=== PATIENT | female | born 1980 | race Caucasian/White ===

== ENCOUNTER 2017-07-02 10:32 | Inpatient (IN) | payer OTHER ==
[2017-07-02 11:18] VITALS: BMI 22.3
--- NOTE | 2017-07-02 11:45 | HP ---
COWS - Scale Resting Pulse: 0= [place] 80 or Below Sweatin=Flushed/Facial Moisture Restless Observation: 3= Extraneous Movement Pupil Size: 2= Moderately Dilated Bone or Joint Aches: 2= Severe Diffuse Aches Runny Nose/ Eye Tearin= Runny Nose/Eyes GI Upset > 30mins: 3= Vomiting/Diarrhea Tremor Observation: 2= Slight Tremor Visible Yawning Observation: 2= >3x During Session Anxiety or Irritability: 2=Irritable/Anxious Goose Flesh Skin: 0=Smooth Skin COWS Score: 20 Admission ROS S - HPI Chief Complaint: i am here needed help to stop using heroin,cocaine,marijuana,street methadone, Allergies/Adverse Reactions: Allergies Allergy/AdvReac Type Severity Reaction Status Date / Time No Known Allergies Allergy Verified 07/02/17 11:45 History of Present Illness: this 36 years old female with heroin and cocaine,marijuana,street methadone, polysubstance dependence,seeking detox,withdrawal symptom, never been in detox before seen in [place] last night refer for detox hepatitis c nicotine dependence Exam Limitations: No Limitations - Ebola screening Have you traveled outside of the country in the last 21 days: No (N) Have you had contact with anyone from an Ebola affected area: No Have you been sick,other than usual withdrawal symptoms: No Do you have a fever: No - Review of Systems Constitutional: Chills, Loss of Appetite, Malaise, Night Sweats, Changes in sleep, Weakness, Unintentional Wgt. Loss EENT: reports: Tearing, Nose Congestion Respiratory: reports: No Symptoms reported Cardiac: reports: No Symptoms Reported GI: reports: Nausea, Vomiting, Abdominal cramping : reports: No Symptoms Reported Musculoskeletal: reports: Back Pain, Joint Pain, Muscle Pain, Joint Stiffness Integumentary: reports: Dryness Neuro: reports: Headache, Tremors Endocrine: reports: No Symptoms Reported Hematology: reports: No Symptoms Reported Psychiatric: reports: No Sypmtoms Reported, Judgement Intact, Mood/Affect Appropiate, Orientated x3 Patient History - Patient Medical History Hx Anemia: No Hx Asthma: No Hx Chronic Obstructive Pulmonary Disease (COPD): No Hx Cancer: No Hx Cardiac Disorders: No Hx Congestive Heart Failure: No Hx Hypertension: No Hx Hypercholesterolemia: No Hx Pacemaker: No HX Cerebrovascular Accident: No Hx Seizures: No Hx Dementia: No Hx Diabetes: No Hx Gastrointestinal Disorders: No Hx Liver Disease: No Hx Genitourinary Disorders: No Hx Sexually Transmitted Disorders: No Hx Renal Disease (ESRD): No Hx Thyroid Disease: No Hx Human Immunodeficiency Virus (HIV): No (last 04/06 negfative) Hx Hepatitis C: Yes Hx Depression: No Hx Suicide Attempt: No Hx Bipolar Disorder: No Hx Schizophrenia: No Other Medical History: no suicidal,no homicidal - Patient Surgical History Past Surgical History: No - PPD History Previous Implant?: Yes Documented Results: Negative w/o proof Implanted On Prior [facility] Admission?: No PPD to be Administered?: Yes - Reproductive History Patient is a Female of Child Bearing Age (11 -55 yrs old): Yes Last Menstrual Period: 12/12/16 Patient : No - Smoking Cessation Smoking history: Current every day smoker Have you smoked in the past 12 months: Yes Aproximately how many cigarettes per day: 20 Hx Chewing Tobacco Use: No Initiated information on smoking cessation: Yes 'Breaking Loose' booklet given: 07/02/17 - Substance & Tx. History Hx Alcohol Use: No Hx Substance Use: Yes Substance Use Type: Cocaine, Heroin, Marijuana Hx Substance Use Treatment: No - Substances Abused STREET METHADONE Route: Oral Frequency: 3-6 times per week Amount used: 40MG Age of first use: 22 Date of Last Use: 06/28/17 THC Route: Smoking Frequency: 1-2 times per week Age of first use: 16 Date of Last Use: 06/25/17 Heroin Route: Injection Frequency: Daily Amount used: 15 bags Age of first use: 16 Date of Last Use: 06/30/17 Cocaine Route: Injection Frequency: 3-6 times per week Amount used: $10 Age of first use: 21 Date of Last Use: 06/28/17 Family Disease History - Family Disease History Family History: Denies Admission Physical Exam BHS - Vital Signs Vital Signs: Vital Signs - 24 hr 07/02/17 11:09 Temperature 98.6 F Pulse Rate 56 L Respiratory 14 Rate Blood Pressure 136/75 - Physical General Appearance: Yes: Moderate Distress, Tremorous, Irritable HEENTM: Yes: Normal ENT Inspection, LUZ MARIA, Pharynx Normal Respiratory: Yes: Lungs Clear, Normal Breath Sounds, No Respiratory Distress Neck: Yes: Within Normal Limits, Supple, Trachea in good position Breast: Yes: Breast Exam Deferred Cardiology: Yes: Within Normal Limits, Regular Rhythm, Regular Rate, S1, S2 Abdominal: Yes: Within Normal Limits, Normal Bowel Sounds, Non Tender, Flat, Soft Genitourinary: Yes: Within Normal Limits Back: Yes: Muscle Spasm Musculoskeletal: Yes: full range of Motion, Back pain, Joint Stiffness, Muscle Pain Extremities: Yes: Within Normal Limits, Normal Range of Motion, Tremors Neurological: Yes: Within Normal Limits, 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, Fully Oriented, Alert, Motor Strength 5/5 Integumentary: Yes: Dry, Other (tattoes bosy) Lymphatic: Yes: Within Normal Limits - Diagnostic (1) Opioid dependence with withdrawal Current Visit: Yes Status: Acute (2) Cocaine dependence Current Visit: Yes Status: Acute (3) Cannabis dependence Current Visit: Yes Status: Acute (4) Nicotine dependence Current Visit: Yes Status: Acute (5) Weight loss Current Visit: Yes Status: Acute (6) Insomnia Current Visit: Yes Status: Acute (7) Hepatitis C Current Visit: Yes Status: Acute Cleared for Admission [facility] - Detox or Rehab [facility] Level of Care: Medically Managed Detox Regimen/Protocol: Methadone [facility] Breath Alcohol Content Breath Alcohol Content: 0 Urine Pregancy Test - Result Urine Test Results: Negative- NO Line Present Urine Drug Screen - Results Drug Screen Negative: No Urine Drug Screen Results: THC-Marijuana, PREETI-Cocaine, PCP-Phencyclidine, BZO- Benzodiazepines, MTD-Methadone
[2017-07-02] MEDS ORDERED: MAG HYDROX/AL HYDROX/SIMETH 30 ML UNIT-DOSE CUP PO PRN (12:07)
[2017-07-02] MEDS ORDERED: MAGNESIUM HYDROX 2400MG/30ML ORAL SUSPENSION 30 ML CUP PO PRN (12:07)
[2017-07-02] MEDS ORDERED: METHADONE HCL 10 MG TABLET (FOR DETOX USE ONLY) PO ONE ×2 (12:07→23:00)
[2017-07-02] MEDS ORDERED: NICOTINE POLACRILEX 2 MG GUM BUC PRN (12:07)
[2017-07-02] MEDS ORDERED: MAGNESIUM CITRATE 300 ML BOTTLE PO PRN (12:07)
[2017-07-02] MEDS ORDERED: guaiFENesin/D-METHORPHAN HB 10 ML UNIT-DOSE CUPS PO PRN (12:07)
[2017-07-02] MEDS ORDERED: LOPERAMIDE HCL 2 MG CAPSULE PO PRN (12:07)
[2017-07-02] MEDS ORDERED: P-EPHED 60MG/TRIPROLIDI 2.5MG TABLET PO PRN (12:07)
[2017-07-02] MEDS ORDERED: MENTHOL/PHENOL 1 EACH UD MM PRN (12:07)
[2017-07-02] MEDS ORDERED: IBUPROFEN 400 MG TABLET (FP) PO PRN (12:07)
[2017-07-02] MEDS: NICOTINE 21 MG/24 HOURS TOPICAL PATCH TD SCH (14:00)
[2017-07-02] MEDS: diazePAM 5 MG TABLET PO PRN ×2 (14:00→22:22)
[2017-07-02] MEDS: hydrOXYzine PAMOATE 25 MG CAPSULE (FP) PO PRN (14:00)
[2017-07-02] MEDS ORDERED: MELATONIN 5 MG TABLETS PO PRN (22:00)
[2017-07-02] MEDS: cloNIDine HCL 0.1 MG TABLET PO PRN (22:22)
[2017-07-02] MEDS: THIAMINE HCL 100 MG TABLET (FP) PO SCH (22:23)
--- NOTE | 2017-07-03 07:48 | CONSULT ---
[facility] Psychiatric Consult - Data Date of interview: 07/03/17 Admission source: [facility] Identifying data: Clemente is 36 years old female, single, homeless, unemployed, with no psychiatric howspitalization history, with heroin and cocaine,marijuana ,street methadone, PCP Benzodiazepins abuse/dependence, is seeking for detoxification reporting withdrawal symptoms. Substance Abuse History: Smoking Cessation. Smoking history: Current every day smoker. Have you smoked in the past 12 months: Yes. Aproximately how many cigarettes per day: 20. Hx Chewing Tobacco Use: No. Initiated information on smoking cessation: Yes. - Substance & Tx. History. Hx Alcohol Use: No. Hx Substance Use: Yes. Substance Use Type: Cocaine, Heroin, Marijuana. Hx Substance Use Treatment: No. - Substances Abused. STREET METHADONE. Route : Oral. Frequency: 3-6 times per week. Amount used: 40MG. Age of first use: 22. Date of Last Use: 06/28/17. THC. Route: Smoking. Frequency: 1-2 times per week. Age of first use: 16. Date of Last Use: 06/25/17. Heroin. Route: Injection. Frequency: Daily. Amount used: 15 bags. Age of first use : 16. Date of Last Use: 06/30/17. Urine Drug Screen Results: THC-Marijuana, PREETI-Cocaine, PCP-Phencyclidine, BZO-Benzodiazepines, MTD-Methadone Medical History: Weigth loss history. HepC+, Psychiatric History: Patient denies past psychiatric contact, reports no medications taking prior to admission, denies [place] and homicidal history as well. Physical/Sexual Abuse/Trauma History: Denies Additional Comment: Urine Drug Screen Results: THC-Marijuana, PREETI-Cocaine, PCP- Phencyclidine, BZO-Benzodiazepines, MTD-Methadone. Observation. Detox Unit Care Protocol Mental Status Exam - Mental Status Exam Alert and Oriented to: Person Cognitive Function: Fair Patient Appearance: Unkempt Mood: Sad Affect: Flat Patient Behavior: Sedated Speech Pattern: Delayed Voice Loudness: Mildly Soft/Quiet Thought Process: Circumstantial Thought Disorder: Being Controlled Hallucinations: Denies Suicidal Ideation: Denies Homicidal Ideation: Denies Insight/Judgement: Fair Sleep: Difficulty falling asleep Appetite: Weight loss Muscle strength/Tone: Mild Hypotonicity Gait/Station: Shuffling Additional Comments: Observation. Detox Unit Care Protocol Psychiatric Findings - Problem List ([place] 1, 2,3) (1) Benzodiazepine abuse Current Visit: Yes Status: Acute (2) Drug-induced mood disorder Current Visit: Yes Status: Suspected (3) Cannabis dependence Current Visit: Yes Status: Acute (4) Cocaine dependence Current Visit: Yes Status: Acute (5) Nicotine dependence Current Visit: Yes Status: Acute (6) Opioid dependence with withdrawal Current Visit: Yes Status: Acute (7) PCP (phencyclidine) abuse Current Visit: Yes Status: Acute (8) Weight loss Current Visit: Yes Status: Acute - Initial Treatment Plan Initial Treatment Plan: Observation. Detox Unit Care Protocol
--- NOTE | 2017-07-03 09:56 | PN ---
BHS CIWA - CIWA Score Nausea/Vomitin Muscle Tremors: 3 Anxiety: 3 Agitation: 3 Paroxysmal Sweats: 1-Minimal Palms Moist Orientation: 0-Oriented Tacttile Disturbances: 1-Very Mild Itch/Numbness Auditory Disturbances: 1-Very Mild Visual Disturbances: 0-None Headache: 2-Mild CIWA-Ar Total Score: 17 BHS Progress Note (SOAP) Subjective: ALERT,IRRITABLE,ANXIOUS,INTERRUPTED SLEEP,PAIN IN THE BODY AND BACK,TREMOR,PAIN IN THE BODY AND BACK Objective: 07/03/17 09:54 Vital Signs Temperature 99.3 F 07/03/17 06:21 Pulse Rate 47 L 07/03/17 06:21 Respiratory Rate 16 07/03/17 06:21 Blood Pressure 140/92 07/03/17 06:21 O2 Sat by Pulse Oximetry (%) EKG SINUS BRADYCARDIA WITH SINUS ARRHYTHMIA 50/MIN NO CHEST PAIN,NO SOB,NO DIZZINESS LABS PENDING Assessment: 07/03/17 09:56 WITHDRAWAL SYMPTOM Plan: CONTINUE DETOX
[2017-07-03] MEDS ORDERED: METHADONE HCL 10 MG TABLET (FOR DETOX USE ONLY) PO ONE (10:00)
[2017-07-03 10:01] LABS: HEMATOCRIT 43.4 % (32.4-45.2); HEMOGLOBIN 14.8 GM/dL (10.7-15.3); MCH 30.9 pg (25.7-33.7); MEAN CELL VOLUME 90.8 fl (80-96); MEAN PLT VOLUME 9.1 fl (7.5-11.1); PLATELET COUNT 306 K/MM3 (134-434); RBC 4.78 M/mm3 (3.60-5.2); RDW 14.5 % (11.6-15.6); WHITE BLOOD COUNT 10.9 K/mm3 (4.0-10.0)
[2017-07-03 10:10] LABS: ALBUMIN 3.7 g/dl (3.4-5.0); ANION GAP 8 (8-16); BLOOD UREA NITROGEN 12 mg/dL (7-18); CALCIUM 9.5 mg/dL (8.5-10.1); CHLORIDE 103 mmol/L (98-107); CO2 26 mmol/L (21-32); GLUCOSE,RANDOM 107 mg/dL (74-106); POTASSIUM 4.5 mmol/L (3.5-5.1); SODIUM 137 mmol/L (136-145)
[2017-07-03 10:13] LABS: ALK PHOS 104 U/L (45-117); BILIRUBIN,TOTAL 0.8 mg/dL (0.2-1.0); CREATININE 0.8 mg/dL (0.55-1.02); SGOT/AST 46 U/L (15-37); SGPT/ALT 84 U/L (12-78); TOT PROT 8.2 g/dl (6.4-8.2)
[2017-07-03] MEDS: PRENATAL VITAMINS W/ FOLIC ACID TABLET (FP) PO SCH (10:15)
[2017-07-03] MEDS: NICOTINE 21 MG/24 HOURS TOPICAL PATCH TD SCH (10:16)
[2017-07-03] MEDS: diazePAM 5 MG TABLET PO PRN ×3 (10:18→22:14)
[2017-07-03] MEDS: ACETAMINOPHEN 325 MG TABLET (FP) PO PRN (10:20)
[2017-07-03] MEDS: cloNIDine HCL 0.1 MG TABLET PO PRN (22:14)
[2017-07-03] MEDS: THIAMINE HCL 100 MG TABLET (FP) PO SCH (22:15)
[2017-07-04] MEDS: diazePAM 5 MG TABLET PO PRN ×2 (02:12→08:02)
[2017-07-04] MEDS ORDERED: BACITRACIN 0.9 GM PACKET TP SCH (10:00)
[2017-07-04] MEDS ORDERED: METHADONE HCL 5 MG TABLET (FOR DETOX USE ONLY) PO ONE (10:00)
[2017-07-04 10:03] LABS: URINE APPEARANCE CLEAR; URINE BILIRUBIN NEGATIVE (<2.0 mg/dL); URINE BLOOD NEGATIVE (NEGATIVE); URINE COLOR LTYELLOW; URINE GLUCOSE (UA) NEGATIVE (NEGATIVE); URINE KETONE NEGATIVE (NEGATIVE); URINE LEUK ESTERASE NEGATIVE (NEGATIVE); URINE NITRITE NEGATIVE (NEGATIVE); URINE PROTEIN NEGATIVE (NEGATIVE); URINE UROBILINOGEN NEGATIVE mg/dL (0.2-1.0)
[2017-07-04 10:07] VITALS: BP 148/94; PULSE 57; TEMP 98.2
[2017-07-04] MEDS: PRENATAL VITAMINS W/ FOLIC ACID TABLET (FP) PO SCH (10:40)
[2017-07-04] MEDS: NICOTINE 21 MG/24 HOURS TOPICAL PATCH TD SCH (10:41)
[2017-07-04] MEDS: hydrOXYzine PAMOATE 25 MG CAPSULE (FP) PO PRN (10:42)
[2017-07-04] MEDS: ACETAMINOPHEN 325 MG TABLET (FP) PO PRN (10:43)
--- NOTE | 2017-07-04 10:57 | PN ---
S COWS - Scale Resting Pulse: 0= [place] 80 or Below Sweatin= Chills/Flushing Restless Observation: 3= Extraneous Movement Pupil Size: 1= Pupils >than Normal Bone or Joint Aches: 2= Severe Diffuse Aches Runny Nose/ Eye Tearin= Nasal Congestion GI Upset > 30mins: 2= Nausea/Diarrhea Tremor Observation of Outstretched Hands: 2= Slight Tremor Visible Yawning Observation: 2= >3x During Session Anxiety or Irritability: 2=Irritable/Anxious Goose Flesh Skin: 0=Smooth Skin COWS Score: 16 BHS Progress Note (SOAP) Subjective: ALERT,IRRITABLE,ANXIOUS,INTERRUPTED SLEEP,PAIN IN THE BODY BACK TREMOR Objective: 07/04/17 10:55 Vital Signs Temperature 98.2 F 07/04/17 10:07 Pulse Rate 57 L 07/04/17 10:07 Respiratory Rate 18 07/04/17 10:07 Blood Pressure 148/94 07/04/17 10:07 O2 Sat by Pulse Oximetry (%) Laboratory Last Values WBC 10.9 K/mm3 (4.0-10.0) H 07/03/17 07:30 RBC 4.78 M/mm3 (3.60-5.2) 07/03/17 07:30 Hgb 14.8 GM/dL (10.7-15.3) 07/03/17 07:30 Hct 43.4 % (32.4-45.2) 07/03/17 07:30 MCV 90.8 fl (80-96) 07/03/17 07:30 MCH 30.9 pg (25.7-33.7) 07/03/17 07:30 MCHC 34.0 g/dl (32.0-36.0) 07/03/17 07:30 RDW 14.5 % (11.6-15.6) 07/03/17 07:30 Plt Count 306 K/MM3 (134-434) 07/03/17 07:30 MPV 9.1 fl (7.5-11.1) 07/03/17 07:30 Sodium 137 mmol/L (136-145) 07/03/17 07:30 Potassium 4.5 mmol/L (3.5-5.1) 07/03/17 07:30 Chloride 103 mmol/L (98-107) 07/03/17 07:30 Carbon Dioxide 26 mmol/L (21-32) 07/03/17 07:30 Anion Gap 8 (8-16) 07/03/17 07:30 BUN 12 mg/dL (7-18) 07/03/17 07:30 Creatinine 0.8 mg/dL (0.55-1.02) 07/03/17 07:30 Creat Clearance w eGFR > 60 (>60) 07/03/17 07:30 Random Glucose 107 mg/dL (74-106) H 07/03/17 07:30 Calcium 9.5 mg/dL (8.5-10.1) 07/03/17 07:30 Total Bilirubin 0.8 mg/dL (0.2-1.0) 07/03/17 07:30 AST 46 U/L (15-37) H 07/03/17 07:30 ALT 84 U/L (12-78) H 07/03/17 07:30 Alkaline Phosphatase 104 U/L (45-117) 07/03/17 07:30 Total Protein 8.2 g/dl (6.4-8.2) 07/03/17 07:30 Albumin 3.7 g/dl (3.4-5.0) 07/03/17 07:30 Urine Color Ltyellow 07/04/17 08:00 Urine Appearance Clear 07/04/17 08:00 Urine pH 6.0 (5.0-8.0) 07/04/17 08:00 Ur Specific [place] 1.010 (1.001-1.035) 07/04/17 08:00 Urine Protein Negative (NEGATIVE) 07/04/17 08:00 Urine Glucose (UA) Negative (NEGATIVE) 07/04/17 08:00 Urine Ketones Negative (NEGATIVE) 07/04/17 08:00 Urine Blood Negative (NEGATIVE) 07/04/17 08:00 Urine Nitrite Negative (NEGATIVE) 07/04/17 08:00 Urine Bilirubin Negative (<2.0 mg/dL) 07/04/17 08:00 Urine Urobilinogen Negative mg/dL (0.2-1.0) 07/04/17 08:00 Ur Leukocyte Esterase Negative (NEGATIVE) 07/04/17 08:00 RPR Titer Nonreactive (NONREACTIVE) 07/03/17 07:30 Assessment: 07/04/17 10:56 WITHDRAWAL SYMPTOM Plan: CONTINUE DETOX
--- NOTE | 2017-07-04 11:39 | PN ---
BEN Progress Note Note: PATIENT DID NOT WANT TO COMPLETE TREATMENT DUE TO EMERGENCY MEDICAL PROBLEM WITH THE MOTHER, SEEN BY COUNSELOR,SIGNED RELEASE AMSaar,
--- NOTE | 2017-07-04 11:44 | DS ---
[facility] Detox Discharge Summary Admission Date: 07/02/17 Discharge Date: 07/04/17 - History Present History: Cannabis Dependence, Cocaine Dependence, Opioid Dependence Additional Comments: PATIENT DID NOT WANT TO COMPLETE TREATMENT DUE TO EMERGENCY MEDICAL PROBLEM OF THE MOTHER IN [place], SEEN BY COUNSELOR,SIGNED RELEASE AMA Pertinent Past History: HEPATITIS C NICOTINE DEPENDENCE WEIGHT LOSS INSOMNIA - Physical Exam Results Vital Signs: Vital Signs Temperature 98.2 F 07/04/17 10:07 Pulse Rate 57 L 07/04/17 10:07 Respiratory Rate 18 07/04/17 10:07 Blood Pressure 148/94 07/04/17 10:07 O2 Sat by Pulse Oximetry (%) Pertinent Admission Physical Exam Findings: WITHDRAWAL SIGNS AND SYMPTOM Laboratory Last Values WBC 10.9 K/mm3 (4.0-10.0) H 07/03/17 07:30 RBC 4.78 M/mm3 (3.60-5.2) 07/03/17 07:30 Hgb 14.8 GM/dL (10.7-15.3) 07/03/17 07:30 Hct 43.4 % (32.4-45.2) 07/03/17 07:30 MCV 90.8 fl (80-96) 07/03/17 07:30 MCH 30.9 pg (25.7-33.7) 07/03/17 07:30 MCHC 34.0 g/dl (32.0-36.0) 07/03/17 07:30 RDW 14.5 % (11.6-15.6) 07/03/17 07:30 Plt Count 306 K/MM3 (134-434) 07/03/17 07:30 MPV 9.1 fl (7.5-11.1) 07/03/17 07:30 Sodium 137 mmol/L (136-145) 07/03/17 07:30 Potassium 4.5 mmol/L (3.5-5.1) 07/03/17 07:30 Chloride 103 mmol/L (98-107) 07/03/17 07:30 Carbon Dioxide 26 mmol/L (21-32) 07/03/17 07:30 Anion Gap 8 (8-16) 07/03/17 07:30 BUN 12 mg/dL (7-18) 07/03/17 07:30 Creatinine 0.8 mg/dL (0.55-1.02) 07/03/17 07:30 Creat Clearance w eGFR > 60 (>60) 07/03/17 07:30 Random Glucose 107 mg/dL (74-106) H 07/03/17 07:30 Calcium 9.5 mg/dL (8.5-10.1) 07/03/17 07:30 Total Bilirubin 0.8 mg/dL (0.2-1.0) 07/03/17 07:30 AST 46 U/L (15-37) H 07/03/17 07:30 ALT 84 U/L (12-78) H 07/03/17 07:30 Alkaline Phosphatase 104 U/L (45-117) 07/03/17 07:30 Total Protein 8.2 g/dl (6.4-8.2) 07/03/17 07:30 Albumin 3.7 g/dl (3.4-5.0) 07/03/17 07:30 Urine Color Ltyellow 07/04/17 08:00 Urine Appearance Clear 07/04/17 08:00 Urine pH 6.0 (5.0-8.0) 07/04/17 08:00 Ur Specific [place] 1.010 (1.001-1.035) 07/04/17 08:00 Urine Protein Negative (NEGATIVE) 07/04/17 08:00 Urine Glucose (UA) Negative (NEGATIVE) 07/04/17 08:00 Urine Ketones Negative (NEGATIVE) 07/04/17 08:00 Urine Blood Negative (NEGATIVE) 07/04/17 08:00 Urine Nitrite Negative (NEGATIVE) 07/04/17 08:00 Urine Bilirubin Negative (<2.0 mg/dL) 07/04/17 08:00 Urine Urobilinogen Negative mg/dL (0.2-1.0) 07/04/17 08:00 Ur Leukocyte Esterase Negative (NEGATIVE) 07/04/17 08:00 RPR Titer Nonreactive (NONREACTIVE) 07/03/17 07:30 - Medication Discharge Medications: Ambulatory Orders NK [No Known Home Medication] 07/02/17 - Diagnosis (1) Opioid dependence with withdrawal Current Visit: Yes Status: Acute (2) Cocaine dependence Current Visit: Yes Status: Acute (3) Cannabis dependence Current Visit: Yes Status: Acute (4) Nicotine dependence Current Visit: Yes Status: Acute (5) Weight loss Current Visit: Yes Status: Acute (6) Insomnia Current Visit: Yes Status: Acute (7) Hepatitis C Current Visit: Yes Status: Acute - AMA Did Patient Leave Against Medical Advice: Yes
--- NOTE | 2017-07-05 09:27 | EKG ---
Test Reason : Blood Pressure : / mmHG Vent. Rate : 050 BPM Atrial Rate : 050 BPM P-R Int : 140 ms QRS Dur : 084 ms QT Int : 426 ms P-R-T Axes : 064 050 035 degrees QTc Int : 388 ms SINUS BRADYCARDIA WITH SINUS ARRHYTHMIA MINIMAL VOLTAGE CRITERIA FOR LVH, MAY BE NORMAL VARIANT BORDERLINE ECG NO PREVIOUS ECGS AVAILABLE Confirmed by TAYLOR GOTTI MD ([id number]) on 07/05/2017 9:27:29 AM Referred By: Confirmed By:TAYLOR GOTTI MD
[2017-07-05] MEDS ORDERED: METHADONE HCL 5 MG TABLET (FOR DETOX USE ONLY) PO ONE (10:00)
[2017-07-06] MEDS ORDERED: METHADONE HCL 10 MG TABLET (FOR DETOX USE ONLY) PO ONE (10:00)
[2017-07-07] MEDS ORDERED: METHADONE HCL 5 MG TABLET (FOR DETOX USE ONLY) PO ONE (06:00)
== END 2017-07-04 12:10 | disposition left against medical advice (07) | DRG 770 ==
LOC: YASAS 10:32 → Y6N 12:35
PROVIDERS: ADMIT Internal Medicine; ATTEND Internal Medicine
PROC: HZ2ZZZZ Detoxification Services for Substance Abuse Treatment (ICD-10-PCS; principal; 2017-07-02)
DX: F11.23 Opioid dependence with withdrawal (principal); F14.20 Cocaine dependence, uncomplicated; F12.20 Cannabis dependence, uncomplicated; F16.10 Hallucinogen abuse, uncomplicated; F17.210 Nicotine dependence, cigarettes, uncomplicated; F19.24 Other psychoactive substance dependence with psychoactive substance-induced mood disorder; G47.00 Insomnia, unspecified; B18.2 Chronic viral hepatitis C; R63.4 Abnormal weight loss; Z68.22 Body mass index [BMI] 22.0-22.9, adult
CPT/HCPCS: 36415; 80053; 81003; 85027; 86593; 93005; 93010; J0735

== ENCOUNTER 2018-10-26 13:08 | Inpatient (IN) | payer OTHER ==
[2018-10-26 15:33] VITALS: BMI 23.2
--- NOTE | 2018-10-26 15:47 | HP ---
CIWA Score - Admission Criteria [facility] Guidelines: Admission for Medically Managed Detox: Requires at least one of the followin. CIWA greater than 12 2. Seizures within the past 24 hours 3. Delirium tremens within the past 24 hours 4. Hallucinations within the past 24 hours 5. Acute intervention needed for co occurring medical disorder 6. Acute intervention needed for co occurring psychiatric disorder 7. Severe withdrawal that cannot be handled at a lower level of care (continued vomiting, continued diarrhea, abnormal vital signs) requiring intravenous medication and/or fluids 8. Admission ROS S - HPI Chief Complaint: I am here to get off the cocaine. I belong to a mmtp program and need to get clean and stay sober. Allergies/Adverse Reactions: Allergies Allergy/AdvReac Type Severity Reaction Status Date / Time No Known Allergies Allergy Verified 10/26/18 15:24 History of Present Illness: pt is a 38yrold female with a history of cocaine, heroin, cannabis and here for rehab. pt belongs to a methadone program on 210mg received today, pending verification. Exam Limitations: No Limitations - Ebola screening Have you traveled outside of the country in the last 21 days: No Have you had contact with anyone from an Ebola affected area: No Have you been sick,other than usual withdrawal symptoms: No Do you have a fever: No - Review of Systems Constitutional: Changes in sleep EENT: reports: Nose Congestion, Other (redness to back of throat) Respiratory: reports: Cough Cardiac: reports: No Symptoms Reported GI: reports: No Symptoms Reported : reports: No Symptoms Reported Musculoskeletal: reports: No Symptoms Reported Integumentary: reports: Flushing, Lesions (to facial area.) Neuro: reports: Tingling, Tremors Endocrine: reports: Excessive Sweating, Flushing Hematology: reports: No Symptoms Reported Psychiatric: reports: Judgement Intact, Mood/Affect Appropiate, Orientated x3, Agitated, Anxious Other Systems: Reviewed and Negative Patient History - Patient Medical History Hx Anemia: No Hx Asthma: No Hx Chronic Obstructive Pulmonary Disease (COPD): No Hx Cancer: No Hx Cardiac Disorders: No Hx Congestive Heart Failure: No Hx Hypertension: No Hx Hypercholesterolemia: No Hx Pacemaker: No HX Cerebrovascular Accident: No Hx Seizures: No Hx Dementia: No Hx Diabetes: No Hx Gastrointestinal Disorders: No Hx Liver Disease: No Hx Genitourinary Disorders: No Hx Sexually Transmitted Disorders: No Hx Renal Disease (ESRD): No Hx Thyroid Disease: No Hx Human Immunodeficiency Virus (HIV): No (last 04/06 negfative) Hx Hepatitis C: Yes Hx Depression: No Hx Suicide Attempt: No Hx Bipolar Disorder: No Hx Schizophrenia: No - Patient Surgical History Past Surgical History: No Hx Neurologic Surgery: No Hx Cataract Extraction: No Hx Cardiac Surgery: No Hx Lung Surgery: No Hx Breast Surgery: No Hx Breast Biopsy: No Hx Abdominal Surgery: No Hx Appendectomy: No Hx Cholecystectomy: No Hx Genitourinary Surgery: No Hx Section: No Hx Orthopedic Surgery: Yes (2006 L5 disc ectomy.) Anesthesia Reaction: No - PPD History Previous Implant?: Yes Date: 07/04/17 PPD to be Administered?: No - Reproductive History Patient is a Female of Child Bearing Age (11 -55 yrs old): Yes Last Menstrual Period: 12/12/16 Patient : No - Smoking Cessation Smoking history: Current every day smoker Have you smoked in the past 12 months: Yes Aproximately how many cigarettes per day: 20 Hx Chewing Tobacco Use: No Initiated information on smoking cessation: Yes 'Breaking Loose' booklet given: 10/26/18 - Substance & Tx. History Hx Alcohol Use: No Hx Substance Use: Yes Substance Use Type: Cocaine, Heroin Hx Substance Use Treatment: Yes (last detox 06/2017 [facility]) - Substances abused Cocaine Substance route: Injection Frequency: Daily Amount used: 1 gram Age of first use: 20 Date of last use: 10/25/18 Heroin Substance route: Injection Frequency: 1-3 times last 30 days Amount used: 4 bags Age of first use: 17 Date of last use: 10/25/18 Family Disease History - Family Disease History Family Disease History: Diabetes: Mother Admission Physical Exam S - Vital Signs Vital Signs: Vital Signs - 24 hr 10/26/18 15:24 Temperature 97.3 F L Pulse Rate 48 L Respiratory 16 Rate - Physical General Appearance: Yes: Appropriately Dressed, Moderate Distress, Thin HEENTM: Yes: Hearing grossly Normal, Normal Voice, Nasal Congestion, Rhinorrhea Respiratory: Yes: Lungs Clear, Normal Breath Sounds, No Respiratory Distress Neck: Yes: No masses,lesions,Nodules Breast: Yes: Within Normal Limits, No Discharge Cardiology: Yes: Regular Rhythm, Regular Rate, S1, S2 Abdominal: Yes: Normal Bowel Sounds Genitourinary: Yes: Within Normal Limits Back: Yes: Normal Inspection Musculoskeletal: Yes: full range of Motion, Back pain Extremities: Yes: Normal Capillary Refill, Normal Inspection, Non-Tender, Tremors Neurological: Yes: Fully Oriented, Normal Response Integumentary: Yes: Normal Color, Diaphoresis, Track Barry Lymphatic: Yes: Within Normal Limits - Diagnostic (1) Cannabis dependence Current Visit: Yes Status: Chronic (2) Cocaine dependence Current Visit: Yes Status: Chronic Qualifiers: Substance use status: uncomplicated Qualified Code(s): F14.20 - Cocaine dependence, uncomplicated (3) Hepatitis C Current Visit: Yes Status: Chronic Qualifiers: Viral hepatitis chronicity: chronic Hepatic coma status: without hepatic coma Qualified Code(s): B18.2 - Chronic viral hepatitis C (4) Insomnia Current Visit: No Status: Acute (5) Nicotine dependence Current Visit: Yes Status: Chronic Qualifiers: Nicotine product type: cigarettes Substance use status: uncomplicated Qualified Code(s): F17.210 - Nicotine dependence, cigarettes, uncomplicated (6) Weight loss Current Visit: Yes Status: Acute (7) Drug-induced mood disorder Current Visit: No Status: Suspected (8) Methadone maintenance therapy patient Current Visit: Yes Status: Chronic Cleared for Admission S - Detox or Rehab [facility] Level of Care: Medically Managed Claeared for Rehab Admission: Yes Inpatient Rehab Admission - Rehab Decision to Admit Inpatient rehab admission?: Yes - Initial Determination Are CD services needed?: Yes Free of communicable disease: Yes Not in need of hospitalization: Yes - Rehab Admission Criteria Previous failed treatment: Yes Poor recovery environment: Yes Comorbidities: Yes Lacks judgement: Yes Patient is meeting Inpatient Rehab admission criteria:: Yes
[2018-10-26] MEDS ORDERED: MAGNESIUM CITRATE 300 ML BOTTLE PO PRN (15:56)
[2018-10-26] MEDS ORDERED: MAGNESIUM HYDROX 2400MG/30ML ORAL SUSPENSION 30 ML CUP PO PRN (15:56)
[2018-10-26] MEDS ORDERED: MAG HYDROX/AL HYDROX/SIMETH 30 ML UNIT-DOSE CUP PO PRN (15:56)
[2018-10-26] MEDS ORDERED: IBUPROFEN 400 MG TABLET (FP) PO PRN (15:56)
[2018-10-26] MEDS ORDERED: MENTHOL/PHENOL 1 EACH UD MM PRN (15:56)
[2018-10-26] MEDS ORDERED: LOPERAMIDE HCL 2 MG CAPSULE PO PRN (15:56)
[2018-10-26] MEDS ORDERED: NICOTINE POLACRILEX 4 MG GUM BC PRN (15:56)
[2018-10-26] MEDS: CLINDAMYCIN PHOSPHATE 1% TOPICAL GEL 30 GM TUBE TP SCH (22:09)
[2018-10-26] MEDS: THIAMINE HCL 100 MG TABLET (FP) PO SCH (22:09)
[2018-10-27] MEDS ORDERED: METHADONE HCL 10 MG TABLET PO SCH (07:00)
[2018-10-27] MEDS ORDERED: METHADONE HCL 40 MG DISPERSABLE TABLET ONE (07:12)
[2018-10-27] MEDS ORDERED: METHADONE HCL 10 MG TABLET ONE (07:12)
[2018-10-27] MEDS: METHADONE 200 MG, METHADONE 10 MG PO SCH (07:14)
[2018-10-27] MEDS: ACETAMINOPHEN 325 MG TABLET (FP) PO PRN ×3 (07:16→20:13)
[2018-10-27] MEDS: PRENATAL VITAMINS W/ FOLIC ACID TABLET (FP) PO SCH (09:09)
[2018-10-27] MEDS: CLINDAMYCIN PHOSPHATE 1% TOPICAL GEL 30 GM TUBE TP SCH ×2 (09:10→21:17)
[2018-10-27] MEDS: NICOTINE 21 MG/24 HOURS TOPICAL PATCH TD SCH (09:10)
[2018-10-27 12:55] LABS: ALBUMIN 3.8 g/dl (3.4-5.0); BILIRUBIN,TOTAL 0.6 mg/dL (0.2-1); BLOOD UREA NITROGEN 8.6 mg/dL (7-18); CALCIUM 9.5 mg/dL (8.5-10.1); CREATININE 0.9 mg/dL (0.55-1.3); HEMATOCRIT 38.8 % (32.4-45.2); HEMOGLOBIN 13.3 GM/dL (10.7-15.3); MCH 31.9 pg (25.7-33.7); MCHC 34.4 g/dl (32.0-36.0); PLATELET COUNT 226 K/MM3 (134-434); POTASSIUM 4.2 mmol/L (3.5-5.1); RBC 4.17 M/mm3 (3.60-5.2); RDW 13.2 % (11.6-15.6); TOT PROT 8.1 g/dl (6.4-8.2); WHITE BLOOD COUNT 10.5 K/mm3 (4.0-10.0)
--- NOTE | 2018-10-27 15:22 | EKG ---
Test Reason : Blood Pressure : / mmHG Vent. Rate : 044 BPM Atrial Rate : 044 BPM P-R Int : 160 ms QRS Dur : 086 ms QT Int : 530 ms P-R-T Axes : 048 037 023 degrees QTc Int : 453 ms MARKED SINUS BRADYCARDIA POSSIBLE LEFT ATRIAL ENLARGEMENT NONSPECIFIC T WAVE ABNORMALITY ABNORMAL ECG WHEN COMPARED WITH ECG OF 02-JUL-2017 13:17, T WAVE INVERSION NOW EVIDENT IN ANTERIOR LEADS QT HAS LENGTHENED Confirmed by MD Curly, Khari ([id number]) on 10/27/2018 3:21:45 PM Referred By: EYAD POSADAS Confirmed By:Khari Rawls MD
[2018-10-27 17:30] LABS: PH,URINE 6.5 (5.0-8.0); URINE APPEARANCE CLEAR; URINE BILIRUBIN NEGATIVE (NEGATIVE); URINE COLOR YELLOW; URINE GLUCOSE (UA) NEGATIVE (NEGATIVE); URINE KETONE NEGATIVE (NEGATIVE); URINE LEUK ESTERASE NEGATIVE (NEGATIVE); URINE NITRITE NEGATIVE (NEGATIVE); URINE PROTEIN NEGATIVE (NEGATIVE); URINE UROBILINOGEN 0.2 mg/dL (0.2-1.0)
[2018-10-27] MEDS ORDERED: PT OWN MED DRAWER 7, Y5N ONE (19:34)
[2018-10-27] MEDS: hydrOXYzine PAMOATE 50 MG CAPSULE (FP) PO PRN (21:18)
[2018-10-27] MEDS: MELATONIN 5 MG TABLETS PO PRN (21:18)
[2018-10-27] MEDS: THIAMINE HCL 100 MG TABLET (FP) PO SCH (21:18)
[2018-10-28] MEDS ORDERED: METHADONE HCL 10 MG TABLET ONE (06:29)
[2018-10-28] MEDS ORDERED: METHADONE HCL 40 MG DISPERSABLE TABLET ONE (06:29)
[2018-10-28] MEDS: METHADONE 200 MG, METHADONE 10 MG PO SCH (06:32)
[2018-10-28] MEDS ORDERED: PT OWN MED DRAWER 7, Y5N ONE (08:31)
[2018-10-28] MEDS: NICOTINE 21 MG/24 HOURS TOPICAL PATCH TD SCH (09:42)
[2018-10-28] MEDS: ACETAMINOPHEN 325 MG TABLET (FP) PO PRN ×2 (09:42→17:19)
[2018-10-28] MEDS: PRENATAL VITAMINS W/ FOLIC ACID TABLET (FP) PO SCH (09:42)
[2018-10-28] MEDS: CLINDAMYCIN PHOSPHATE 1% TOPICAL GEL 30 GM TUBE TP SCH ×2 (09:42→21:20)
[2018-10-28] MEDS: P-EPHED 60MG/TRIPROLIDI 2.5MG TABLET PO PRN (20:33)
[2018-10-28] MEDS: hydrOXYzine PAMOATE 50 MG CAPSULE (FP) PO PRN (20:34)
[2018-10-28] MEDS: THIAMINE HCL 100 MG TABLET (FP) PO SCH (21:19)
[2018-10-28] MEDS: MELATONIN 5 MG TABLETS PO PRN (21:20)
[2018-10-29] MEDS ORDERED: METHADONE HCL 10 MG TABLET ONE (06:12)
[2018-10-29] MEDS ORDERED: METHADONE HCL 40 MG DISPERSABLE TABLET ONE (06:13)
[2018-10-29] MEDS: METHADONE 200 MG, METHADONE 10 MG PO SCH (06:16)
[2018-10-29] MEDS: P-EPHED 60MG/TRIPROLIDI 2.5MG TABLET PO PRN ×2 (08:45→17:05)
[2018-10-29] MEDS: NICOTINE 21 MG/24 HOURS TOPICAL PATCH TD SCH (10:04)
[2018-10-29] MEDS: CLINDAMYCIN PHOSPHATE 1% TOPICAL GEL 30 GM TUBE TP SCH ×2 (10:04→21:35)
[2018-10-29] MEDS: PRENATAL VITAMINS W/ FOLIC ACID TABLET (FP) PO SCH (10:04)
[2018-10-29] MEDS: hydrOXYzine PAMOATE 50 MG CAPSULE (FP) PO PRN ×2 (12:44→21:34)
[2018-10-29] MEDS: MELATONIN 5 MG TABLETS PO PRN (21:34)
[2018-10-29] MEDS: THIAMINE HCL 100 MG TABLET (FP) PO SCH (21:34)
[2018-10-29] MEDS ORDERED: PT OWN MED DRAWER 7, Y5N ONE (21:35)
[2018-10-30] MEDS ORDERED: METHADONE HCL 10 MG TABLET ONE (07:40)
[2018-10-30] MEDS ORDERED: METHADONE HCL 40 MG DISPERSABLE TABLET ONE (07:41)
[2018-10-30] MEDS: METHADONE 200 MG, METHADONE 10 MG PO SCH (07:42)
[2018-10-30] MEDS: P-EPHED 60MG/TRIPROLIDI 2.5MG TABLET PO PRN ×2 (09:00→17:13)
[2018-10-30] MEDS: NICOTINE 21 MG/24 HOURS TOPICAL PATCH TD SCH (09:00)
[2018-10-30] MEDS: PRENATAL VITAMINS W/ FOLIC ACID TABLET (FP) PO SCH (09:00)
[2018-10-30] MEDS: CLINDAMYCIN PHOSPHATE 1% TOPICAL GEL 30 GM TUBE TP SCH ×2 (09:00→21:38)
[2018-10-30] MEDS: hydrOXYzine PAMOATE 50 MG CAPSULE (FP) PO PRN ×2 (12:13→21:37)
[2018-10-30] MEDS: THIAMINE HCL 100 MG TABLET (FP) PO SCH (21:37)
[2018-10-30] MEDS: MELATONIN 5 MG TABLETS PO PRN (21:37)
[2018-10-31] MEDS ORDERED: METHADONE HCL 10 MG TABLET ONE (05:08)
[2018-10-31] MEDS ORDERED: METHADONE HCL 40 MG DISPERSABLE TABLET ONE (05:09)
[2018-10-31] MEDS: METHADONE 200 MG, METHADONE 10 MG PO SCH (06:59)
[2018-10-31] MEDS: P-EPHED 60MG/TRIPROLIDI 2.5MG TABLET PO PRN ×2 (07:04→18:12)
[2018-10-31] MEDS ORDERED: PT OWN MED DRAWER 7, Y5N ONE (09:00)
[2018-10-31] MEDS ORDERED: ALBUTEROL SO4 8 GM HFA INHALER IH PRN (09:57)
--- NOTE | 2018-10-31 10:03 | PN ---
[facility] Progress Note Note: pt reports she has a long standing hx of Asthma but has never indicated on admission H/P on two occasions she has been here. States she has her albuterol inhaler in [place]. Pt c/o cold symptoms she had before admission with coughing along with green sputum and nasal congestion. Also reports some redness and pain to inner area of right foot due to her ill- fitting shoes. Vital Signs - 24 hr 10/31/18 10/31/18 10/31/18 00:30 03:30 07:27 Temperature 97.1 F L Pulse Rate 59 L Respiratory 18 16 18 Rate Blood Pressure 132/90 Laboratory Tests 10/26/18 10/27/18 10/27/18 15:51 10:00 10:00 WBC 10.5 H RBC 4.17 Hgb 13.3 Hct 38.8 MCV 93.0 MCH 31.9 MCHC 34.4 RDW 13.2 Plt Count 226 D MPV 9.0 Sodium 138 Potassium 4.2 Chloride 101 Carbon Dioxide 30 Anion Gap 7 L BUN 8.6 Creatinine 0.9 Est GFR (CKD-EPI)AfAm 95.34 Est GFR (CKD-EPI)NonAf 82.26 Random Glucose 94 Calcium 9.5 Total Bilirubin 0.6 AST 78 H ALT 134 H Alkaline Phosphatase 134 H Total Protein 8.1 Albumin 3.8 Urine Color Urine Appearance Urine pH Ur Specific [place] Urine Protein Urine Glucose (UA) Urine Ketones Urine Blood Urine Nitrite Urine Bilirubin Urine Urobilinogen Ur Leukocyte Esterase POC Urine HCG, Qual Negative RPR Titer 10/27/18 10/27/18 10:00 Unknown WBC RBC Hgb Hct MCV MCH MCHC RDW Plt Count MPV Sodium Potassium Chloride Carbon Dioxide Anion Gap BUN Creatinine Est GFR (CKD-EPI)AfAm Est GFR (CKD-EPI)NonAf Random Glucose Calcium Total Bilirubin AST ALT Alkaline Phosphatase Total Protein Albumin Urine Color Yellow Urine Appearance Clear Urine pH 6.5 Ur Specific [place] 1.005 L Urine Protein Negative Urine Glucose (UA) Negative Urine Ketones Negative Urine Blood Negative Urine Nitrite Negative Urine Bilirubin Negative Urine Urobilinogen 0.2 Ur Leukocyte Esterase Negative POC Urine HCG, Qual RPR Titer Nonreactive Alert o x 3 oob ambulates with steady gait Heart:s1 s2, rrr Lungs:cta,pedro., no wheeze or rhonchi Abdomen:soft,flat,+bs,nt Ext:No e/c/c; small redness to inner lateral right foot. A/P: Acute Bronchitis Abrasion, right foot Hx asthma Amoxicillin 500 mg po tid x 7 days Bacitracin oinment to affected foot as directed Albuterol inhaler Q4H prn for sob/wheezing Nebulizer tx prn as directed
[2018-10-31] MEDS: hydrOXYzine PAMOATE 50 MG CAPSULE (FP) PO PRN ×3 (10:05→21:32)
[2018-10-31] MEDS: NICOTINE 21 MG/24 HOURS TOPICAL PATCH TD SCH (10:05)
[2018-10-31] MEDS: PRENATAL VITAMINS W/ FOLIC ACID TABLET (FP) PO SCH (10:05)
[2018-10-31] MEDS: CLINDAMYCIN PHOSPHATE 1% TOPICAL GEL 30 GM TUBE TP SCH ×2 (10:06→21:33)
[2018-10-31] MEDS: ACETAMINOPHEN 325 MG TABLET (FP) PO PRN (10:07)
[2018-10-31] MEDS ORDERED: AMOXICILLIN 500 MG CAPSULE (FP) PO ONE (17:00)
[2018-10-31] MEDS: THIAMINE HCL 100 MG TABLET (FP) PO SCH (21:32)
[2018-10-31] MEDS: guaiFENesin 200 MG/10 ML 10 ML UNIT-DOSE CUPS PO PRN (21:32)
[2018-10-31] MEDS: MELATONIN 5 MG TABLETS PO PRN (21:33)
[2018-10-31] MEDS: AMOXICILLIN 500 MG CAPSULE (FP) PO SCH (21:34)
[2018-11-01] MEDS ORDERED: ALBUTEROL SO4 0.083% IH SOL 2.5 MG/3 ML VIAL.NEB. NEB PRN (00:12)
[2018-11-01] MEDS ORDERED: METHADONE HCL 40 MG DISPERSABLE TABLET ONE (05:54)
[2018-11-01] MEDS ORDERED: METHADONE HCL 10 MG TABLET ONE (05:54)
[2018-11-01] MEDS: AMOXICILLIN 500 MG CAPSULE (FP) PO SCH ×3 (07:00→21:24)
[2018-11-01] MEDS: METHADONE 200 MG, METHADONE 10 MG PO SCH (07:00)
[2018-11-01] MEDS: CLINDAMYCIN PHOSPHATE 1% TOPICAL GEL 30 GM TUBE TP SCH ×2 (09:37→21:25)
[2018-11-01] MEDS: BACITRACIN 0.9 GM PACKET TP SCH (09:37)
[2018-11-01] MEDS: NICOTINE 21 MG/24 HOURS TOPICAL PATCH TD SCH (09:38)
[2018-11-01] MEDS: PRENATAL VITAMINS W/ FOLIC ACID TABLET (FP) PO SCH (09:38)
[2018-11-01] MEDS: guaiFENesin 200 MG/10 ML 10 ML UNIT-DOSE CUPS PO PRN (11:29)
[2018-11-01] MEDS: hydrOXYzine PAMOATE 50 MG CAPSULE (FP) PO PRN ×2 (13:21→21:24)
[2018-11-01] MEDS ORDERED: PT OWN MED DRAWER 7, Y5N ONE (14:55)
[2018-11-01] MEDS: P-EPHED 60MG/TRIPROLIDI 2.5MG TABLET PO PRN (14:56)
[2018-11-01] MEDS: MELATONIN 5 MG TABLETS PO PRN (21:24)
[2018-11-01] MEDS: THIAMINE HCL 100 MG TABLET (FP) PO SCH (21:24)
[2018-11-02] MEDS ORDERED: METHADONE HCL 10 MG TABLET ONE (05:57)
[2018-11-02] MEDS ORDERED: METHADONE HCL 40 MG DISPERSABLE TABLET ONE (05:58)
[2018-11-02] MEDS ORDERED: METHADONE HCL 40 MG DISPERSABLE TABLET PO SCH (06:00)
[2018-11-02] MEDS: METHADONE 200 MG, METHADONE 10 MG PO SCH (06:33)
[2018-11-02] MEDS: AMOXICILLIN 500 MG CAPSULE (FP) PO SCH ×3 (06:33→21:39)
[2018-11-02] MEDS: hydrOXYzine PAMOATE 50 MG CAPSULE (FP) PO PRN ×2 (06:34→21:39)
[2018-11-02] MEDS: BACITRACIN 0.9 GM PACKET TP SCH (09:28)
[2018-11-02] MEDS: CLINDAMYCIN PHOSPHATE 1% TOPICAL GEL 30 GM TUBE TP SCH ×2 (09:29→21:39)
[2018-11-02] MEDS: NICOTINE 21 MG/24 HOURS TOPICAL PATCH TD SCH (09:29)
[2018-11-02] MEDS: PRENATAL VITAMINS W/ FOLIC ACID TABLET (FP) PO SCH (09:30)
[2018-11-02] MEDS: P-EPHED 60MG/TRIPROLIDI 2.5MG TABLET PO PRN (09:31)
[2018-11-02] MEDS: guaiFENesin 200 MG/10 ML 10 ML UNIT-DOSE CUPS PO PRN ×2 (13:11→21:39)
[2018-11-02] MEDS: MELATONIN 5 MG TABLETS PO PRN (21:39)
[2018-11-02] MEDS: THIAMINE HCL 100 MG TABLET (FP) PO SCH (21:39)
[2018-11-03] MEDS ORDERED: METHADONE HCL 40 MG DISPERSABLE TABLET ONE (06:02)
[2018-11-03] MEDS ORDERED: METHADONE HCL 10 MG TABLET ONE (06:02)
[2018-11-03] MEDS: AMOXICILLIN 500 MG CAPSULE (FP) PO SCH ×3 (06:40→21:21)
[2018-11-03] MEDS: METHADONE 200 MG, METHADONE 10 MG PO SCH (06:40)
[2018-11-03] MEDS: P-EPHED 60MG/TRIPROLIDI 2.5MG TABLET PO PRN (09:05)
[2018-11-03] MEDS: PRENATAL VITAMINS W/ FOLIC ACID TABLET (FP) PO SCH (10:17)
[2018-11-03] MEDS: guaiFENesin 200 MG/10 ML 10 ML UNIT-DOSE CUPS PO PRN (10:18)
[2018-11-03] MEDS: BACITRACIN 0.9 GM PACKET TP SCH (10:18)
[2018-11-03] MEDS: CLINDAMYCIN PHOSPHATE 1% TOPICAL GEL 30 GM TUBE TP SCH ×2 (10:18→21:22)
[2018-11-03] MEDS: NICOTINE 21 MG/24 HOURS TOPICAL PATCH TD SCH (10:18)
[2018-11-03] MEDS ORDERED: PT OWN MED DRAWER 7, Y5N ONE (11:06)
[2018-11-03] MEDS: hydrOXYzine PAMOATE 50 MG CAPSULE (FP) PO PRN ×2 (15:56→21:21)
[2018-11-03] MEDS: THIAMINE HCL 100 MG TABLET (FP) PO SCH (21:20)
[2018-11-03] MEDS: MELATONIN 5 MG TABLETS PO PRN (21:20)
[2018-11-04] MEDS ORDERED: METHADONE HCL 40 MG DISPERSABLE TABLET ONE (06:15)
[2018-11-04] MEDS ORDERED: METHADONE HCL 10 MG TABLET ONE (06:15)
[2018-11-04] MEDS: METHADONE 200 MG, METHADONE 10 MG PO SCH (07:51)
[2018-11-04] MEDS: AMOXICILLIN 500 MG CAPSULE (FP) PO SCH ×3 (07:51→21:10)
[2018-11-04] MEDS: BACITRACIN 0.9 GM PACKET TP SCH (09:55)
[2018-11-04] MEDS: NICOTINE 21 MG/24 HOURS TOPICAL PATCH TD SCH (09:55)
[2018-11-04] MEDS: PRENATAL VITAMINS W/ FOLIC ACID TABLET (FP) PO SCH (09:55)
[2018-11-04] MEDS: ACETAMINOPHEN 325 MG TABLET (FP) PO PRN (09:55)
[2018-11-04] MEDS: P-EPHED 60MG/TRIPROLIDI 2.5MG TABLET PO PRN ×2 (09:55→21:11)
[2018-11-04] MEDS: CLINDAMYCIN PHOSPHATE 1% TOPICAL GEL 30 GM TUBE TP SCH ×2 (09:56→21:11)
[2018-11-04] MEDS: hydrOXYzine PAMOATE 50 MG CAPSULE (FP) PO PRN ×2 (13:53→21:11)
[2018-11-04] MEDS: THIAMINE HCL 100 MG TABLET (FP) PO SCH (21:10)
[2018-11-05] MEDS ORDERED: METHADONE HCL 10 MG TABLET ONE (06:08)
[2018-11-05] MEDS ORDERED: METHADONE HCL 40 MG DISPERSABLE TABLET ONE (06:09)
[2018-11-05] MEDS: METHADONE 200 MG, METHADONE 10 MG PO SCH (06:56)
[2018-11-05] MEDS: AMOXICILLIN 500 MG CAPSULE (FP) PO SCH ×3 (06:56→21:39)
[2018-11-05] MEDS: P-EPHED 60MG/TRIPROLIDI 2.5MG TABLET PO PRN ×2 (06:59→19:15)
[2018-11-05] MEDS: PRENATAL VITAMINS W/ FOLIC ACID TABLET (FP) PO SCH (09:28)
[2018-11-05] MEDS: CLINDAMYCIN PHOSPHATE 1% TOPICAL GEL 30 GM TUBE TP SCH ×2 (09:28→21:38)
[2018-11-05] MEDS: BACITRACIN 0.9 GM PACKET TP SCH (09:29)
[2018-11-05] MEDS: NICOTINE 21 MG/24 HOURS TOPICAL PATCH TD SCH (09:29)
[2018-11-05] MEDS: hydrOXYzine PAMOATE 50 MG CAPSULE (FP) PO PRN ×2 (09:29→19:15)
[2018-11-05] MEDS: guaiFENesin 200 MG/10 ML 10 ML UNIT-DOSE CUPS PO PRN (12:11)
[2018-11-05] MEDS ORDERED: ALBUTEROL SO4 0.083% IH SOL 2.5 MG/3 ML VIAL.NEB. NEB PRN (12:56)
--- NOTE | 2018-11-05 13:16 | PN ---
[facility] Progress Note Note: Patient c/o coughing with yellow sputum production. Patient is on Amoxicillin and Albuterol HFA/Neb which she states is helping to improve symptoms. Patient is refusing robitussin but reports it is difficult to bring up phlegm. Patient denies CP, SOB and fever. Vital Signs Temperature 97.4 F L 11/05/18 07:09 Pulse Rate 54 L 11/05/18 07:09 Respiratory Rate 18 11/05/18 07:09 Blood Pressure 127/85 11/05/18 07:09 O2 Sat by Pulse Oximetry (%) Laboratory Tests 10/26/18 10/27/18 10/27/18 15:51 10:00 10:00 WBC 10.5 H RBC 4.17 Hgb 13.3 Hct 38.8 MCV 93.0 MCH 31.9 MCHC 34.4 RDW 13.2 Plt Count 226 D MPV 9.0 Sodium 138 Potassium 4.2 Chloride 101 Carbon Dioxide 30 Anion Gap 7 L BUN 8.6 Creatinine 0.9 Est GFR (CKD-EPI)AfAm 95.34 Est GFR (CKD-EPI)NonAf 82.26 Random Glucose 94 Calcium 9.5 Total Bilirubin 0.6 AST 78 H ALT 134 H Alkaline Phosphatase 134 H Total Protein 8.1 Albumin 3.8 Urine Color Urine Appearance Urine pH Ur Specific [place] Urine Protein Urine Glucose (UA) Urine Ketones Urine Blood Urine Nitrite Urine Bilirubin Urine Urobilinogen Ur Leukocyte Esterase POC Urine HCG, Qual Negative RPR Titer TB Test (QFT) Nil TB Test (QFT) Mitogen TB Test (QFT) Antigen TB Test (QFT) TB Positive Criteria TB Test (QFT) Interp 10/27/18 10/27/18 10/27/18 10:00 10:00 10:00 WBC RBC Hgb Hct MCV MCH MCHC RDW Plt Count MPV Sodium Potassium Chloride Carbon Dioxide Anion Gap BUN Creatinine Est GFR (CKD-EPI)AfAm Est GFR (CKD-EPI)NonAf Random Glucose Calcium Total Bilirubin AST ALT Alkaline Phosphatase Total Protein Albumin Urine Color Urine Appearance Urine pH Ur Specific [place] Urine Protein Urine Glucose (UA) Urine Ketones Urine Blood Urine Nitrite Urine Bilirubin Urine Urobilinogen Ur Leukocyte Esterase POC Urine HCG, Qual RPR Titer Nonreactive TB Test (QFT) Nil Cancelled 0.08 TB Test (QFT) Mitogen Cancelled >10.00 TB Test (QFT) Antigen Cancelled 0.14 TB Test (QFT) Cancelled Negative TB Positive Criteria Cancelled TB Test (QFT) Interp 10/27/18 Unknown WBC RBC Hgb Hct MCV MCH MCHC RDW Plt Count MPV Sodium Potassium Chloride Carbon Dioxide Anion Gap BUN Creatinine Est GFR (CKD-EPI)AfAm Est GFR (CKD-EPI)NonAf Random Glucose Calcium Total Bilirubin AST ALT Alkaline Phosphatase Total Protein Albumin Urine Color Yellow Urine Appearance Clear Urine pH 6.5 Ur Specific [place] 1.005 L Urine Protein Negative Urine Glucose (UA) Negative Urine Ketones Negative Urine Blood Negative Urine Nitrite Negative Urine Bilirubin Negative Urine Urobilinogen 0.2 Ur Leukocyte Esterase Negative POC Urine HCG, Qual RPR Titer TB Test (QFT) Nil TB Test (QFT) Mitogen TB Test (QFT) Antigen TB Test (QFT) TB Positive Criteria TB Test (QFT) Interp PE: alert and oriented x 3 skin warm and dry car s1s2 resp faint scattered wheezes, no rales or rhonchi gi soft, bs+ nt ext full rom, no edema A/P cough will d/c robitussin start mucinex continue current tx with amoxicillin and albuterol monitor clinically
[2018-11-05] MEDS: MELATONIN 5 MG TABLETS PO PRN (21:37)
[2018-11-05] MEDS: THIAMINE HCL 100 MG TABLET (FP) PO SCH (21:37)
[2018-11-05] MEDS: guaiFENesin 600 MG TABLET.ER (FP) PO SCH (21:39)
[2018-11-05] MEDS ORDERED: PT OWN MED DRAWER 7, Y5N ONE (21:39)
[2018-11-06] MEDS ORDERED: METHADONE HCL 10 MG TABLET ONE (03:14)
[2018-11-06] MEDS ORDERED: METHADONE HCL 40 MG DISPERSABLE TABLET ONE (03:15)
[2018-11-06] MEDS: METHADONE 200 MG, METHADONE 10 MG PO SCH (06:39)
[2018-11-06] MEDS: AMOXICILLIN 500 MG CAPSULE (FP) PO SCH ×3 (06:39→21:26)
[2018-11-06] MEDS: P-EPHED 60MG/TRIPROLIDI 2.5MG TABLET PO PRN (06:39)
[2018-11-06] MEDS: PRENATAL VITAMINS W/ FOLIC ACID TABLET (FP) PO SCH (10:03)
[2018-11-06] MEDS: hydrOXYzine PAMOATE 50 MG CAPSULE (FP) PO PRN ×2 (10:03→21:26)
[2018-11-06] MEDS: NICOTINE 21 MG/24 HOURS TOPICAL PATCH TD SCH (10:04)
[2018-11-06] MEDS: guaiFENesin 600 MG TABLET.ER (FP) PO SCH ×2 (10:04→21:26)
[2018-11-06] MEDS: CLINDAMYCIN PHOSPHATE 1% TOPICAL GEL 30 GM TUBE TP SCH ×2 (10:05→21:27)
[2018-11-06] MEDS: BACITRACIN 0.9 GM PACKET TP SCH (10:05)
[2018-11-06] MEDS: ACETAMINOPHEN 325 MG TABLET (FP) PO PRN (10:05)
[2018-11-06] MEDS: MELATONIN 5 MG TABLETS PO PRN (21:26)
[2018-11-06] MEDS: THIAMINE HCL 100 MG TABLET (FP) PO SCH (21:26)
[2018-11-07] MEDS ORDERED: METHADONE HCL 10 MG TABLET ONE (03:19)
[2018-11-07] MEDS ORDERED: METHADONE HCL 40 MG DISPERSABLE TABLET ONE (03:19)
[2018-11-07] MEDS: METHADONE 200 MG, METHADONE 10 MG PO SCH (07:01)
[2018-11-07] MEDS: AMOXICILLIN 500 MG CAPSULE (FP) PO SCH ×2 (07:02→13:12)
[2018-11-07] MEDS: P-EPHED 60MG/TRIPROLIDI 2.5MG TABLET PO PRN ×2 (07:03→21:27)
[2018-11-07] MEDS: ACETAMINOPHEN 325 MG TABLET (FP) PO PRN (07:03)
[2018-11-07] MEDS: guaiFENesin 600 MG TABLET.ER (FP) PO SCH ×2 (09:58→21:25)
[2018-11-07] MEDS: NICOTINE 21 MG/24 HOURS TOPICAL PATCH TD SCH (09:58)
[2018-11-07] MEDS: BACITRACIN 0.9 GM PACKET TP SCH (09:58)
[2018-11-07] MEDS: CLINDAMYCIN PHOSPHATE 1% TOPICAL GEL 30 GM TUBE TP SCH ×2 (09:58→21:25)
[2018-11-07] MEDS: PRENATAL VITAMINS W/ FOLIC ACID TABLET (FP) PO SCH (09:58)
[2018-11-07] MEDS: hydrOXYzine PAMOATE 50 MG CAPSULE (FP) PO PRN ×2 (09:59→21:27)
--- NOTE | 2018-11-07 13:29 | DS ---
[facility] Rehab Discharge Summary - [facility] Rehab Discharge Summary Admission Date: 10/26/18 Discharge Date: 11/07/18 - History Present History: Cocaine dependence, MMTP ([facility]-MMTP), Opioid dependence Additional Comments: PT IS SCHEDULED TO BE DISCHARGED TOMORROW. Pertinent Past History: HEP C ASTHMA INSOMNIA - Discharge Physical Exam Vital Signs: Vital Signs Temperature 97.8 F 11/07/18 07:26 Pulse Rate 55 L 11/07/18 07:26 Respiratory Rate 18 11/07/18 07:26 Blood Pressure 128/82 11/07/18 07:26 O2 Sat by Pulse Oximetry (%) Pertinent Admission Physical Exam Findings: Laboratory Tests 10/26/18 10/27/18 10/27/18 15:51 10:00 10:00 WBC 10.5 H RBC 4.17 Hgb 13.3 Hct 38.8 MCV 93.0 MCH 31.9 MCHC 34.4 RDW 13.2 Plt Count 226 D MPV 9.0 Sodium 138 Potassium 4.2 Chloride 101 Carbon Dioxide 30 Anion Gap 7 L BUN 8.6 Creatinine 0.9 Est GFR (CKD-EPI)AfAm 95.34 Est GFR (CKD-EPI)NonAf 82.26 Random Glucose 94 Calcium 9.5 Total Bilirubin 0.6 AST 78 H ALT 134 H Alkaline Phosphatase 134 H Total Protein 8.1 Albumin 3.8 Urine Color Urine Appearance Urine pH Ur Specific [place] Urine Protein Urine Glucose (UA) Urine Ketones Urine Blood Urine Nitrite Urine Bilirubin Urine Urobilinogen Ur Leukocyte Esterase POC Urine HCG, Qual Negative RPR Titer TB Test (QFT) Nil TB Test (QFT) Mitogen TB Test (QFT) Antigen TB Test (QFT) TB Positive Criteria TB Test (QFT) Interp 10/27/18 10/27/18 10/27/18 10:00 10:00 10:00 WBC RBC Hgb Hct MCV MCH MCHC RDW Plt Count MPV Sodium Potassium Chloride Carbon Dioxide Anion Gap BUN Creatinine Est GFR (CKD-EPI)AfAm Est GFR (CKD-EPI)NonAf Random Glucose Calcium Total Bilirubin AST ALT Alkaline Phosphatase Total Protein Albumin Urine Color Urine Appearance Urine pH Ur Specific [place] Urine Protein Urine Glucose (UA) Urine Ketones Urine Blood Urine Nitrite Urine Bilirubin Urine Urobilinogen Ur Leukocyte Esterase POC Urine HCG, Qual RPR Titer Nonreactive TB Test (QFT) Nil Cancelled 0.08 TB Test (QFT) Mitogen Cancelled >10.00 TB Test (QFT) Antigen Cancelled 0.14 TB Test (QFT) Cancelled Negative TB Positive Criteria Cancelled TB Test (QFT) Interp 10/27/18 Unknown WBC RBC Hgb Hct MCV MCH MCHC RDW Plt Count MPV Sodium Potassium Chloride Carbon Dioxide Anion Gap BUN Creatinine Est GFR (CKD-EPI)AfAm Est GFR (CKD-EPI)NonAf Random Glucose Calcium Total Bilirubin AST ALT Alkaline Phosphatase Total Protein Albumin Urine Color Yellow Urine Appearance Clear Urine pH 6.5 Ur Specific [place] 1.005 L Urine Protein Negative Urine Glucose (UA) Negative Urine Ketones Negative Urine Blood Negative Urine Nitrite Negative Urine Bilirubin Negative Urine Urobilinogen 0.2 Ur Leukocyte Esterase Negative POC Urine HCG, Qual RPR Titer TB Test (QFT) Nil TB Test (QFT) Mitogen TB Test (QFT) Antigen TB Test (QFT) TB Positive Criteria TB Test (QFT) Interp COPIES OF LAB RESULT GIVEN TO PT FOR FOLLOW UP WITH PRIMARY CARE AFTER DISCHARGE. GENERAL: CARDIAC: LUNGS: ABDOMEN: EXTREMITIES/SKIN: - Treatment Discharge Condition: Discharge condition good Hospital Course: RESPONDED WELL AND REHABILITATED SAFELY - Medication Discharge Medications: Ambulatory Orders Albuterol Sulfate Inhaler - [Ventolin Hfa Inhaler -] 2 inh PO Q4H 10/31/18 - Medication-Assisted Treatment (MAT) Medication-Assisted Treatment (MAT): No - Discharge Instructions Diet, activity, other medical instructions: Diet:REGULAR Activity: TOLERATED Other medical instructions:D/W PT TO FOLLOW UP WITH PRIMARY CARE WITHIN 1 WEEKS AFTER DISCHARGE FOR MEDICAL MANAGEMENT AT [facility] FOR REPEAT LIVER FUNCTION TEST. 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 FOLLOW UP WITH PRIMARY CARE AT [facility] FOR MEDICAL MANAGEMENT.
[2018-11-07] MEDS: THIAMINE HCL 100 MG TABLET (FP) PO SCH (22:32)
[2018-11-08] MEDS ORDERED: METHADONE HCL 10 MG TABLET ONE (03:44)
[2018-11-08] MEDS ORDERED: METHADONE HCL 40 MG DISPERSABLE TABLET ONE (03:44)
[2018-11-08] MEDS: METHADONE 200 MG, METHADONE 10 MG PO SCH (06:48)
[2018-11-08] MEDS: P-EPHED 60MG/TRIPROLIDI 2.5MG TABLET PO PRN (06:50)
[2018-11-08 07:28] VITALS: BP 115/82; PULSE 61; TEMP 97.5
[2018-11-08] MEDS: CLINDAMYCIN PHOSPHATE 1% TOPICAL GEL 30 GM TUBE TP SCH (09:20)
[2018-11-08] MEDS: NICOTINE 21 MG/24 HOURS TOPICAL PATCH TD SCH (09:20)
[2018-11-08] MEDS: guaiFENesin 600 MG TABLET.ER (FP) PO SCH (09:20)
[2018-11-08] MEDS: PRENATAL VITAMINS W/ FOLIC ACID TABLET (FP) PO SCH (09:21)
[2018-11-08] MEDS: hydrOXYzine PAMOATE 50 MG CAPSULE (FP) PO PRN (09:21)
[2018-11-08] MEDS: ACETAMINOPHEN 325 MG TABLET (FP) PO PRN (09:22)
[2018-11-09] MEDS ORDERED: METHADONE 200 MG, METHADONE 10 MG PO SCH (06:00)
== END 2018-11-08 09:24 | disposition home or self-care (01) | DRG 772 ==
LOC: YASAS 13:08 → Y3E 16:38
PROVIDERS: ADMIT Neuromusculoskeletal Medicine & OMM; ATTEND Neuromusculoskeletal Medicine & OMM
PROC: HZ42ZZZ Group Counseling for Substance Abuse Treatment, Cognitive-Behavioral (ICD-10-PCS; principal; 2018-10-26)
DX: F14.20 Cocaine dependence, uncomplicated (principal); F11.20 Opioid dependence, uncomplicated; F12.20 Cannabis dependence, uncomplicated; F17.210 Nicotine dependence, cigarettes, uncomplicated; F19.24 Other psychoactive substance dependence with psychoactive substance-induced mood disorder; B18.2 Chronic viral hepatitis C; J20.9 Acute bronchitis, unspecified; R63.4 Abnormal weight loss; G47.00 Insomnia, unspecified
CPT/HCPCS: 36415; 80053; 81003; 81025; 85027; 86480; 86593; 93005; 93010